=== PATIENT | female | born 1995 | race Caucasian/White ===

== ENCOUNTER 2018-01-18 12:30 | Emergency (ER) | payer BC ==
[~2018-01-18] VITALS: Ht 170.2 cm; Wt 78.2 kg
[~2018-01-18 12:30] MED LIST: AMBIEN5 M1 PO
[2018-01-18 13:30] LABS: EOS # 0.1 (0.04-0.40); EOS % 1.5 % (1.0-5.0); HEMATOCRIT 41.8 % (37.0-47.0); HEMOGLOBIN 13.3 g/dL (12.5-16.0); LYMPH# 1.6 (1.50-4.00); MEAN CELL VOLUME 88 fl (78-100); MEAN CORPUSCULAR HEMOGLOBIN 28 pg (27-31); MEAN CORPUSCULAR HGB CONC 32 g/dL (33-37); MEAN PLATELET VOLUME 9.9 fl (7.4-10.4); MONO # 0.6 (0.20-0.80); NEU # 5.8 (1.40-6.50); PLATELET COUNT 224 K/mm3 (130-400); RED BLOOD COUNT 4.77 M/mm3 (4.10-5.30); RED CELL DISTRIBUTION WIDTH 14.8 % (11.5-14.5); WHITE BLOOD COUNT 8.2 K/mm3 (4.8-10.8)
[2018-01-18 14:18] LABS: ALBUMIN 3.9 g/dL (3.5-5.0); BUN/CREATININE RATIO 11.8 (6.0-26.0); CALCIUM 9.7 mg/dL (8.4-10.2); POTASSIUM 3.8 mmol/L (3.6-5.0); TOTAL BILIRUBIN 0.3 mg/dL (0.2-1.3)
[2018-01-18 14:34] LABS: D-DIMER 0.42 mg/L FEU (0.15-0.50)
[2018-01-18 14:40] LABS: URINE WBC 0 /hpf (0-3)
[2018-01-18 15:08] LABS: PH-URINE 8.5 (5.0 - 8.0); URINE APPEARANCE HAZY; URINE BILIRUBIN NEGATIVE (NEGATIVE); URINE BLOOD TRACE (NEGATIVE); URINE COLOR LT YELLOW; URINE GLUCOSE NEGATIVE (NEGATIVE); URINE KETONE NEGATIVE (NEGATIVE); URINE LEUKOCYTE ESTERASE NEGATIVE (NEGATIVE); URINE NITRATE NEGATIVE (NEGATIVE); URINE PROTEIN(semi-quant) NEGATIVE (NEGATIVE); URINE UROBILINOGEN NORMAL (NORMAL)
[2018-01-18 15:09] LABS: URINE MUCUS PRESENT (NOT PRESENT)
[2018-01-18 16:01] VITALS: BP 122/86
== END 2018-01-18 15:45 | disposition home or self-care (01) ==
LOC: ED 12:30
PROVIDERS: Nurse Practitioner
DX: R55 Syncope and collapse (principal); R51 Headache